=== PATIENT | male | born 1965 | race Caucasian/White ===

== ENCOUNTER 2021-01-11 12:26 | Emergency (ER) | payer OTHER, MEDICAID, SELFPAY ==
[2021-01-11] VITALS (11 sets, daily range): BP systolic 134–174; BP diastolic 79–102; PULSE 78–106; RESP 16–23; TEMP 36.6; O2SAT 94–97; BMI 28.7
--- NOTE | 2021-01-11 12:57 | DI.RAD.S_ITS ---
PROCEDURE: XR ACUTE ABDOMEN SERIES INDICATIONS: abd pain/constipation TECHNIQUE: One view chest and two views of the abdomen were acquired. COMPARISON: None. FINDINGS: Surgical changes and devices: None. Chest: Lungs are clear. Heart size is normal. No pleural effusions. No pneumoperitoneum. Abdomen: Bowel gas pattern is normal. No suspicious calcifications. Visualized solid organ contours appear normal. Increased stool is seen in right colon consistent with constipation. Diffusely distended loops of small and large bowel are noted. Contrast is present in the left lower abdomen likely related to oral contrast administered elsewhere or radiopaque material such as Pepto-Bismol. Bones: No suspicious bony lesions. IMPRESSION: Constipation. No acute abnormality. Dictated by: Dillon Matias M.D. on 01/11/2021 at 13:35 Approved by: Dillon Matias M.D. on 01/11/2021 at 13:37
[2021-01-11 13:59] LABS: Add Manual Diff / Slide Review NO; Basophils Absolute Auto 0 /uL (0-100); Basophils Percent Auto 0.2 % (0-2); Eosinophils Absolute Auto 0 /uL (0-450); Eosinophils Percent Auto 0.1 % (2-4); Hematocrit 47.5 % (41-53); Hemoglobin 16.6 g/dL (13.5-17.5); Lymphocytes Absolute Auto 900 /uL (1100-4500); Lymphocytes Percent Auto 7.4 % (25-40); Mean Corpuscular Hemoglobin 29.5 PG (26-34); Mean Corpuscular Volume 84.4 fL (80-100); Monocytes Absolute Auto 1100 /uL (0-900); Monocytes Percent Auto 8.8 % (3-14); Neutrophils Absolute Auto 10100 /uL (1500-7000); Neutrophils Percent Auto 83.5 % (50-75); Platelet Count 224 X10^3/uL (150-400); Red Blood Cell Count 5.63 X10^6/uL (4.5-5.9); Red Cell Distribution Width 12.9 % (11.6-14.8); White Blood Cell Count 12.1 X10^3/uL (4.5-11.0)
[2021-01-11 14:09] LABS: Prothrombin Time 11.8 SECONDS (10.1-12.7)
[2021-01-11 14:11] LABS: PTT Partial Thromboplastin Tim 31 SECONDS (26.4-36.2)
[2021-01-11 14:13] LABS: Alanine Aminotransferase 22 IU/L (<50); Albumin 4.8 g/dL (3.5-5.0); Albumin Globulin Ratio 1.6 (1.0-2.8); Alkaline Phosphatase 44 U/L (38-126); Aspartate Aminotransferase 21 IU/L (17-59); Bilirubin Total 1.1 mg/dL (0.2-1.3); Blood Urea Nitrogen 18 mg/dL (9-20); Calcium 9.9 mg/dL (8.4-10.2); Carbon Dioxide 26 mmol/L (22-32); Chloride 97 mmol/L (98-107); Estimated Glomerular Filt Rate 53.1 mL/min (>60); Glucose 124 mg/dL (70-100); HEMOLYSIS < 15 (0-50); Lipase 24 U/L (23-300); Potassium 4.1 mmol/L (3.4-5.1); Sodium 133 mmol/L (137-145); Total Protein 7.8 g/dL (6.3-8.2)
[2021-01-11 14:17] LABS: Amorphous Sediment Urine 1+; Bacteria Urine None Seen; Culture Indicated Urine Cult Not Indicated; RBC Urine 1-5/HPF (0-5/HPF); WBC Urine 0-1/HPF (0-5/HPF)
--- NOTE | 2021-01-11 14:21 | DI.CT.S_ITS ---
PROCEDURE: CT CHEST ABD PEL W CON INDICATIONS: RLQ, RUQ abdominal pain TECHNIQUE: After the administration of oral and intravenous contrast, axial sections acquired from the supraclavicular neck to the pubic symphysis. Coronal and sagittal reformats were performed. For radiation dose reduction, the following was used: automated exposure control, adjustment of mA and/or kV according to patient size. COMPARISON: None. FINDINGS: Image quality: Excellent. CHEST: Lungs and pleura: No acute air space opacities. No pleural effusions or pneumothorax. Central and peripheral airways are patent and normal in caliber. Mild right basilar atelectasis Mediastinum: Heart size is normal. No pericardial effusion. No mediastinal adenopathy by size criteria. The aorta has atherosclerosis with no aneurysmal dilatation. The coronary arteries have atherosclerotic calcifications. Esophagus is normal in caliber. No hiatal hernia. Chest wall: No axillary or supraclavicular adenopathy by size criteria. Thyroid gland is normal . ABDOMEN: Solid organs: Liver: The liver has no mass or intrahepatic biliary ductal dilatation. The portal vein and hepatic veins are patent. Biliary: The gallbladder contains a 8 mm stone. No wall thickening or pericholecystic fluid to suggest cholecystitis. Pancreas: The pancreas has no mass or ductal dilatation. There is no surrounding inflammation. Spleen: Normal size. There are no masses. Adrenals: No hypertrophy or nodules. Kidneys: The left kidney is normal with no obstructing stones or hydronephrosis. The right kidney has mild perinephric inflammation and dilation of the right ureter along its entire length to the bladder. No solid or cystic masses of the kidneys. Bowel: Small hiatal hernia. The stomach is normal. The small bowel has a normal caliber and appearance. The terminal ileum is normal. The large bowel has a normal caliber and appearance. The appendix is normal. No free fluid or air. Nodes and vessels: No retroperitoneal or mesenteric adenopathy by size criteria. The aorta has atherosclerosis with no aneurysmal dilatation. The IVC has a normal caliber. Abdominal wall: No abdominal wall mass or hernia. PELVIS: Genitourinary: Possible thickening of the right bladder wall at the UVJ. There is a 4 mm calculus lying dependently in the bladder, likely a recently passed stone. Abdominal wall: No inguinal hernias or adenopathy. BONES: Degenerative disc disease at L5-S1. Multilevel degenerative changes. No vertebral body compression fractures. The left hip has severe degenerative changes with subchondral cystic changes of the acetabulum. IMPRESSION: 1. Right perinephric inflammation and prominence of the right ureter with a stone lying dependently in the bladder. Findings are most consistent with a recently passed stone. 2. Thickening of the bladder at the UVJ likely edema from recently passed stone. Recommend follow-up to ensure resolution or cystoscopy. Dictated by: Dillon Matias M.D. on 01/11/2021 at 15:24 Approved by: Dillon Matias M.D. on 01/11/2021 at 15:36
--- NOTE | 2021-01-11 14:36 | ED_ITS ---
HPI - Abdominal Pain <Robby Ferreira PA-C - Last Filed: 01/11/21 17:29> General Chief Complaint: Abdominal Pain Stated Complaint: right sided pain Time Seen by Provider: 01/11/21 13:47 History of Present Illness HPI narrative: Patient is a 55-year-old male presenting to the emergency department today for evaluation right lower quadrant abdominal pain. Patient states that he began to experience right lower quadrant abdominal pain yesterday afternoon, and he notes that his last bowel movement occurred on the morning prior. Patient states that the pain has began radiating into his right upper quadrant. He notes that he does have a history of gastroesophageal reflux disease but he notes that Pepto-Bismol has not been helping with his symptoms. Additionally, he notes 3 episodes of nonbloody nonbilious vomiting since his pain began on Wednesday. Patient denies fever, chills, chest pain, shortness of breath, cough, diarrhea, hematuria, dysuria, numbness or tingling in the bilateral lower extremities. No other concerns voiced at this time. Related Data Previous Rx's Medication Instructions Recorded docusate sodium 100 mg capsule 100 mg PO BID #10 cap 01/11/21 ondansetron HCl 4 mg tablet 4 mg PO Q8H PRN #20 tab 01/11/21 (Zofran) oxycodone 5 mg capsule 5 mg PO BID PRN #6 cap 01/11/21 Review of Systems <Robby Ferreira PA-C - Last Filed: 01/11/21 17:29> Constitutional Constitutional: Denies chills, Denies fatigue, Denies fever(s), Denies frequent falls, Denies lethargy and Denies weakness Eyes Eyes: Denies loss of vision ENT Ears, Nose, Mouth, and Throat: Denies dizziness and Denies neck pain Cardiovascular Cardiovascular: Denies chest pain, Denies irregular heart rhythm, Denies lightheadedness, Denies palpitations, Denies dyspnea, Denies dyspnea on exertion and Denies orthopnea Respiratory Respiratory: Denies cough, Denies dyspnea, Denies dyspnea on exertion and Denies wheezing Gastrointestinal Gastrointestinal: Reports abdominal pain (Right lower quadrant, right upper quadrant pain), Denies change in bowel habits, Reports constipation, Denies diarrhea, Denies nausea and Reports vomiting Genitourinary Genitourinary: Denies hematuria, Reports flank pain (Slight right flank pain), Denies urinary incontinence and Denies urinary urgency Musculoskeletal Musculoskeletal: Denies back pain, Denies muscle weakness, Denies neck pain, Denies numbness and Denies tingling Neurologic Neurologic: Denies behavioral changes, Denies confusion, Denies dizziness, Denies frequent falls, Denies loss of vision, Denies numbness, Denies tingling and Denies weakness Psychiatric Psychiatric: Denies behavioral changes and Denies confusion Endocrine Endocrine: Denies fatigue and Denies palpitations Allergic/Immunologic Allergic/Immunologic: Denies wheezing Exam <Robby Ferreira PA-C - Last Filed: 01/11/21 17:29> Narrative Exam Narrative: GENERAL: 55 year old patient appears stated age. Well-developed patient, in mild distress. HEAD: Atraumatic. Normocephalic. EYES: Pupils equal round and reactive. Extraocular motions intact. No scleral icterus. No injection or drainage. ENT: Nose without bleeding, purulent drainage. Throat without erythema, tonsillar hypertrophy or exudate. Airway patent. NECK: Trachea midline. Non tender CARDIOVASCULAR: Regular rate and rhythm without murmurs, gallops, or rubs. RESPIRATORY: Clear to auscultation. Breath sounds equal bilaterally. No wheezes, rales, or rhonchi. GASTROINTESTINAL: Abdomen soft, nondistended. Tenderness to palpation appreciated in the right upper quadrant. Positive Leon sign. Negative McBurney's point. No rebound tenderness appreciated. Negative psoas sign. EXTREMITIES: No edema or joint tenderness. BACK: Nontender without deformity or crepitance. No flank tenderness. No CVA tenderness. NEURO: AOx3. SKIN: No rash or erythema of visible areas Initial Vital Signs Initial Vital Signs: Vital Signs Temperature 97.9 F 01/11/21 12:51 Pulse Rate 106 H 01/11/21 12:51 Respiratory Rate 16 01/11/21 12:51 Blood Pressure 142/102 H 01/11/21 12:51 Pulse Oximetry 97 01/11/21 12:51 <Augustus Coppola DO - Last Filed: 01/11/21 17:39> Initial Vital Signs Initial Vital Signs: Vital Signs Temperature 97.9 F 01/11/21 12:51 Pulse Rate 106 H 01/11/21 12:51 Respiratory Rate 16 01/11/21 12:51 Blood Pressure 142/102 H 01/11/21 12:51 Pulse Oximetry 97 01/11/21 12:51 Course <Robby Ferreira PA-C - Last Filed: 01/11/21 17:29> Course Course Narrative: CBC, CMP, chest x-ray, CT abdomen chest and pelvis, lipase, PT/INR, PTT, UA, EKG ordered. Orders Ordered: ED Orders 01/11/21 12:57 XR acute abdomen series Stat 01/11/21 13:51 Complete Blood Count AUTO DIFF Stat Comprehensive Metabolic Panel Stat Lipase Stat Partial Thromboplastin Time Stat Prothrombin Time INR Stat 01/11/21 14:05 Urine Microscopic Stat 01/11/21 14:21 CT chest abd pel w con Stat Vital Signs Vital signs: Vital Signs - 8 hr 01/11/21 12:51 01/11/21 13:42 01/11/21 13:43 Temperature 97.9 F Pulse Rate 106 H 78 78 Respiratory Rate 16 Blood Pressure 142/102 H 174/91 H Pulse Oximetry 97 97 96 01/11/21 13:53 01/11/21 14:23 01/11/21 14:25 Temperature Pulse Rate 90 98 H 99 H Respiratory Rate 20 20 Blood Pressure 173/99 H 150/91 H Pulse Oximetry 95 95 94 01/11/21 14:30 01/11/21 14:52 01/11/21 15:00 Temperature Pulse Rate 96 H 91 H 94 H Respiratory Rate 23 20 20 Blood Pressure 151/91 H 159/82 H 142/79 H Pulse Oximetry 94 97 94 01/11/21 16:21 01/11/21 16:22 Temperature Pulse Rate 89 91 H Respiratory Rate 20 Blood Pressure 134/81 Pulse Oximetry 96 96 <Augustus Coppola DO - Last Filed: 01/11/21 17:39> Orders Ordered: ED Orders 01/11/21 12:57 XR acute abdomen series Stat 01/11/21 13:51 Complete Blood Count AUTO DIFF Stat Comprehensive Metabolic Panel Stat Lipase Stat Partial Thromboplastin Time Stat Prothrombin Time INR Stat 01/11/21 14:05 Urine Microscopic Stat 01/11/21 14:21 CT chest abd pel w con Stat Vital Signs Vital signs: Vital Signs - 8 hr 01/11/21 12:51 01/11/21 13:42 01/11/21 13:43 Temperature 97.9 F Pulse Rate 106 H 78 78 Respiratory Rate 16 Blood Pressure 142/102 H 174/91 H Pulse Oximetry 97 97 96 01/11/21 13:53 01/11/21 14:23 01/11/21 14:25 Temperature Pulse Rate 90 98 H 99 H Respiratory Rate 20 20 Blood Pressure 173/99 H 150/91 H Pulse Oximetry 95 95 94 01/11/21 14:30 01/11/21 14:52 01/11/21 15:00 Temperature Pulse Rate 96 H 91 H 94 H Respiratory Rate 23 20 20 Blood Pressure 151/91 H 159/82 H 142/79 H Pulse Oximetry 94 97 94 01/11/21 16:21 01/11/21 16:22 Temperature Pulse Rate 89 91 H Respiratory Rate 20 Blood Pressure 134/81 Pulse Oximetry 96 96 MDM - Abdominal Pain <Robby Ferreira PA-C - Last Filed: 01/11/21 17:29> Lab Data Result diagrams: 01/11/21 13:51 01/11/21 13:51 Labs: Lab Results 01/11/21 01/11/21 01/11/21 Range/Units 13:51 13:51 13:51 WBC 12.1 H (4.5-11.0) X10^3/uL RBC 5.63 (4.5-5.9) X10^6/uL Hgb 16.6 (13.5-17.5) g/dL Hct 47.5 (41-53) % MCV 84.4 (80-100) fL MCH 29.5 (26-34) PG MCHC 35.0 (30-36) % RDW 12.9 (11.6-14.8) % Plt Count 224 (150-400) X10^3/uL Neut % (Auto) 83.5 H (50-75) % Lymph % (Auto) 7.4 L (25-40) % [place] % (Auto) 8.8 (3-14) % Eos % (Auto) 0.1 L (2-4) % Baso % (Auto) 0.2 (0-2) % Neut # (Auto) 15526 H (6400-8075) /uL Lymph # (Auto) 900 L (4776-4160) /uL [place] # (Auto) 1100 H (0-900) /uL Eos # (Auto) 0 (0-450) /uL Baso # (Auto) 0 (0-100) /uL PT 11.8 (10.1-12.7) SECONDS INR 1.0 (0.9-1.3) APTT 31 (26.4-36.2) SECONDS Sodium 133 L (137-145) mmol/L Potassium 4.1 (3.4-5.1) mmol/L Chloride 97 L (98-107) mmol/L Carbon Dioxide 26 (22-32) mmol/L BUN 18 (9-20) mg/dL Creatinine 1.38 H (0.66-1.25) mg/dL Estimated GFR 53.1 L (>60) mL/min BUN/Creatinine Ratio 13.0 (6-22) Glucose 124 H (70-100) mg/dL Calcium 9.9 (8.4-10.2) mg/dL Total Bilirubin 1.1 (0.2-1.3) mg/dL AST 21 (17-59) IU/L ALT 22 (<50) IU/L Alkaline Phosphatase 44 (38-126) U/L Total Protein 7.8 (6.3-8.2) g/dL Albumin 4.8 (3.5-5.0) g/dL Globulin 3.0 (1.7-4.1) g/dL Albumin/Globulin Ratio 1.6 (1.0-2.8) Lipase 24 (23-300) U/L Urine RBC (0-5/HPF) Urine WBC (0-5/HPF) Amorphous Sediment Urine Bacteria (None) Ur Culture Indicated? 01/11/21 Range/Units 14:05 WBC (4.5-11.0) X10^3/uL RBC (4.5-5.9) X10^6/uL Hgb (13.5-17.5) g/dL Hct (41-53) % MCV (80-100) fL MCH (26-34) PG MCHC (30-36) % RDW (11.6-14.8) % Plt Count (150-400) X10^3/uL Neut % (Auto) (50-75) % Lymph % (Auto) (25-40) % [place] % (Auto) (3-14) % Eos % (Auto) (2-4) % Baso % (Auto) (0-2) % Neut # (Auto) (5306-4544) /uL Lymph # (Auto) (1979-3678) /uL [place] # (Auto) (0-900) /uL Eos # (Auto) (0-450) /uL Baso # (Auto) (0-100) /uL PT (10.1-12.7) SECONDS INR (0.9-1.3) APTT (26.4-36.2) SECONDS Sodium (137-145) mmol/L Potassium (3.4-5.1) mmol/L Chloride (98-107) mmol/L Carbon Dioxide (22-32) mmol/L BUN (9-20) mg/dL Creatinine (0.66-1.25) mg/dL Estimated GFR (>60) mL/min BUN/Creatinine Ratio (6-22) Glucose (70-100) mg/dL Calcium (8.4-10.2) mg/dL Total Bilirubin (0.2-1.3) mg/dL AST (17-59) IU/L ALT (<50) IU/L Alkaline Phosphatase (38-126) U/L Total Protein (6.3-8.2) g/dL Albumin (3.5-5.0) g/dL Globulin (1.7-4.1) g/dL Albumin/Globulin Ratio (1.0-2.8) Lipase (23-300) U/L Urine RBC 1-5/hpf (0-5/HPF) Urine WBC 0-1/hpf (0-5/HPF) Amorphous Sediment 1+ Urine Bacteria None seen (None) Ur Culture Indicated? Cult not indicated Point of care testing: Urine Dip Bedside Urine Glucose Negative Bedside Urine Bilirubin - Negative Bedside Urine Ketone - Negative Urine Specific [place] 1.010 Bedside Urine Occult Blood +++ Bedside Urine pH 6.0 Bedside Urine Protein + 30 Bedside Urine Urobilinogen - Negative Bedside Urine Nitrite - Negative Bedside Urine Leukocytes - Negative Esterase Imaging Data Chest/Abdomen x-ray: Radiologist's Impression: PROCEDURE:? XR ACUTE ABDOMEN SERIES ? INDICATIONS:? abd pain/constipation ? TECHNIQUE:? One view chest and two views of the abdomen were acquired.? ? COMPARISON:? None. ? FINDINGS:? ? Surgical changes and devices:? None.? ? Chest:? Lungs are clear.? Heart size is normal.? No pleural effusions.? No pneumoperitoneum.? ? Abdomen:? Bowel gas pattern is normal.? No suspicious calcifications.? Visualized solid organ contours appear normal.? Increased stool is seen in right colon consistent with constipation.? Diffusely distended loops of small and large bowel are noted.? Contrast is present in the left lower abdomen likely related to oral contrast administered elsewhere or radiopaque material such as Pepto-Bismol. ? Bones:? No suspicious bony lesions.? ? IMPRESSION:? Constipation.? No acute abnormality.? ? ? Dictated by: Dillon Matias M.D. on 01/11/2021 at 13:35 ? ? Approved by: Dillon Matias M.D. on 01/11/2021 at 13:37 ? CT scan - chest/abdomen/pelvis: Radiologist's Impression: PROCEDURE:? CT CHEST ABD PEL W CON ? INDICATIONS:? RLQ, RUQ abdominal pain ? TECHNIQUE:? After the administration of oral and intravenous contrast, axial sections acquired from the supraclavicular neck to the pubic symphysis.? Coronal and sagittal reformats were performed.? For radiation dose reduction, the following was used:? automated exposure control, adjustment of mA and/or kV according to patient size.? ? COMPARISON:? None. ? FINDINGS: ? ? Image quality:? Excellent.? ? CHEST: Lungs and pleura:? No acute air space opacities.? No pleural effusions or pneumothorax.? Central and peripheral airways are patent and normal in caliber.? Mild right basilar atelectasis ? Mediastinum:? Heart size is normal.? No pericardial effusion.? No mediastinal adenopathy by size criteria.? The aorta has atherosclerosis with no aneurysmal dilatation.? The coronary arteries have atherosclerotic calcifications.? Esophagus is normal in caliber.? No hiatal hernia. ? Chest wall:? No axillary or supraclavicular adenopathy by size criteria.? Thyroid gland is normal .? ? ABDOMEN: Solid organs:? Liver: The liver has no mass or intrahepatic biliary ductal dilatation. The portal vein and hepatic veins are patent. Biliary:? The gallbladder contains a 8 mm stone.? No wall thickening or pericholecystic fluid to suggest cholecystitis.? Pancreas: The pancreas has no mass or ductal dilatation. There is no surrounding inflammation. Spleen: Normal size. There are no masses. Adrenals: No hypertrophy or nodules. Kidneys:? The left kidney is normal with no obstructing stones or hydr onephrosis.? The right kidney has mild perinephric inflammation and dilation of the right ureter along its entire length to the bladder.? No solid or cystic masses of the kidneys.? ? Bowel:? Small hiatal hernia.? The stomach is normal.? The small bowel has a normal caliber and appearance. The terminal ileum is normal. The large bowel has a normal caliber and appearance.? The appendix is normal. No free fluid or air.? ? Nodes and vessels:? No retroperitoneal or mesenteric adenopathy by size crite maria esther.? The aorta has atherosclerosis with no aneurysmal dilatation.? The IVC has a normal caliber. ? Abdominal wall:? No abdominal wall mass or hernia. ? PELVIS:? Genitourinary:? Possible thickening of the right bladder wall at the UVJ.? There is a 4 mm calculus lying dependently in the bladder, likely a recently passed stone. ? Abdominal wall:? No inguinal hernias or adenopathy.? ? BONES:? Degenerative disc disease at L5-S1.? Multilevel degenerative changes.? No vertebral body compression fractures.? The left hip has severe degenerative changes with subchondral cystic changes of the acetabulum. ? IMPRESSION: 1. Right perinephric inflammation and prominence of the right ureter with a stone lying dependently in the bladder.? Findings are most consistent with a recently passed stone.? 2. Thickening of the bladder at the UVJ likely edema from recently passed stone.? Recommend follow-up to ensure resolution or cystoscopy. ? ? Dictated by: Dillon Matias M.D. on 01/11/2021 at 15:24 ? ? Approved by: Dillon Matias M.D. on 01/11/2021 at 15:36 ? MDM Narrative Medical decision making narrative: Patient is a 55-year-old male presenting to the emergency department today for evaluation right lower quadrant abdominal pain. To consider appendicitis versus is cholelithiasis versus cholecystitis versus ischemic colitis versus constipation versus nephrolithiasis versus ureterolithiasis. Overall physical examination, history, lab work, imaging are reassuring. Discussed results of lab work and imaging to the patient and recommended that he follow-up with a general surgeon. At this time he feels comfortable being discharged home. Strict return precautions discussed with patient prior to discharge. <Augustus Coppola, DO - Last Filed: 01/11/21 17:39> Lab Data Labs: Lab Results 01/11/21 01/11/21 01/11/21 Range/Units 13:51 13:51 13:51 WBC 12.1 H (4.5-11.0) X10^3/uL RBC 5.63 (4.5-5.9) X10^6/uL Hgb 16.6 (13.5-17.5) g/dL Hct 47.5 (41-53) % MCV 84.4 (80-100) fL MCH 29.5 (26-34) PG MCHC 35.0 (30-36) % RDW 12.9 (11.6-14.8) % Plt Count 224 (150-400) X10^3/uL Neut % (Auto) 83.5 H (50-75) % Lymph % (Auto) 7.4 L (25-40) % [place] % (Auto) 8.8 (3-14) % Eos % (Auto) 0.1 L (2-4) % Baso % (Auto) 0.2 (0-2) % Neut # (Auto) 65566 H (0065-7296) /uL Lymph # (Auto) 900 L (4411-1209) /uL [place] # (Auto) 1100 H (0-900) /uL Eos # (Auto) 0 (0-450) /uL Baso # (Auto) 0 (0-100) /uL PT 11.8 (10.1-12.7) SECONDS INR 1.0 (0.9-1.3) APTT 31 (26.4-36.2) SECONDS Sodium 133 L (137-145) mmol/L Potassium 4.1 (3.4-5.1) mmol/L Chloride 97 L (98-107) mmol/L Carbon Dioxide 26 (22-32) mmol/L BUN 18 (9-20) mg/dL Creatinine 1.38 H (0.66-1.25) mg/dL Estimated GFR 53.1 L (>60) mL/min BUN/Creatinine Ratio 13.0 (6-22) Glucose 124 H (70-100) mg/dL Calcium 9.9 (8.4-10.2) mg/dL Total Bilirubin 1.1 (0.2-1.3) mg/dL AST 21 (17-59) IU/L ALT 22 (<50) IU/L Alkaline Phosphatase 44 (38-126) U/L Total Protein 7.8 (6.3-8.2) g/dL Albumin 4.8 (3.5-5.0) g/dL Globulin 3.0 (1.7-4.1) g/dL Albumin/Globulin Ratio 1.6 (1.0-2.8) Lipase 24 (23-300) U/L Urine RBC (0-5/HPF) Urine WBC (0-5/HPF) Amorphous Sediment Urine Bacteria (None) Ur Culture Indicated? 01/11/21 Range/Units 14:05 WBC (4.5-11.0) X10^3/uL RBC (4.5-5.9) X10^6/uL Hgb (13.5-17.5) g/dL Hct (41-53) % MCV (80-100) fL MCH (26-34) PG MCHC (30-36) % RDW (11.6-14.8) % Plt Count (150-400) X10^3/uL Neut % (Auto) (50-75) % Lymph % (Auto) (25-40) % [place] % (Auto) (3-14) % Eos % (Auto) (2-4) % Baso % (Auto) (0-2) % Neut # (Auto) (6665-7440) /uL Lymph # (Auto) (8251-3907) /uL [place] # (Auto) (0-900) /uL Eos # (Auto) (0-450) /uL Baso # (Auto) (0-100) /uL PT (10.1-12.7) SECONDS INR (0.9-1.3) APTT (26.4-36.2) SECONDS Sodium (137-145) mmol/L Potassium (3.4-5.1) mmol/L Chloride (98-107) mmol/L Carbon Dioxide (22-32) mmol/L BUN (9-20) mg/dL Creatinine (0.66-1.25) mg/dL Estimated GFR (>60) mL/min BUN/Creatinine Ratio (6-22) Glucose (70-100) mg/dL Calcium (8.4-10.2) mg/dL Total Bilirubin (0.2-1.3) mg/dL AST (17-59) IU/L ALT (<50) IU/L Alkaline Phosphatase (38-126) U/L Total Protein (6.3-8.2) g/dL Albumin (3.5-5.0) g/dL Globulin (1.7-4.1) g/dL Albumin/Globulin Ratio (1.0-2.8) Lipase (23-300) U/L Urine RBC 1-5/hpf (0-5/HPF) Urine WBC 0-1/hpf (0-5/HPF) Amorphous Sediment 1+ Urine Bacteria None seen (None) Ur Culture Indicated? Cult not indicated Point of care testing: Urine Dip Bedside Urine Glucose Negative Bedside Urine Bilirubin - Negative Bedside Urine Ketone - Negative Urine Specific [place] 1.010 Bedside Urine Occult Blood +++ Bedside Urine pH 6.0 Bedside Urine Protein + 30 Bedside Urine Urobilinogen - Negative Bedside Urine Nitrite - Negative Bedside Urine Leukocytes - Negative Esterase Discharge Plan Departure Patient Disposition: Home Clinical Impression: Ureterolithiasis, Gallstone, Constipation Instructions: DI for Kidney Stones, DI for Gallstones Activity Restrictions/Additional Instructions: *You have been diagnosed with ureterolithiasis, gallstones *What to do: *Please continue to take your regular medications as directed. [X] New medication prescriptions sent to your pharmacy: [facility] [X] New medication written as a paper prescription - Oxycodone [ ] No new medications given *Please follow up with your primary care provider in 2-3 days, call for an appointment. Let them know you were seen in the Emergency Department and that we ask that you be seen in follow up. We will electronically transmit a record of today's note if your PCP is in our system. *Please follow-up with Dr. Padilla (General Surgery) the earliest available convenience. Office can be reached at . *If you do not have a primary care provider please contact the [facility] Resource line at [phone]. They will ask some questions about your medical history and help get you set up with a doctor in the community. *Return to Emergency Department if you should have any new, worsening or concerning symptoms, such as [fever greater than 101 F, shaking chills, worsening pain, persistent vomiting or other bothersome symptoms] Prescriptions: New docusate sodium 100 mg capsule 100 mg PO BID Qty: 10 0RF ondansetron HCl [Zofran] 4 mg tablet 4 mg PO Q8H PRN (Reason: nausea and vomiting) Qty: 20 0RF oxycodone 5 mg capsule 5 mg PO BID PRN (Reason: pain) Qty: 6 0RF Referrals: Tk Rosario MD [Primary Care Provider] - Tiago Padilla MD [Physician] - As soon as possible <Augustus Coppola DO - Last Filed: 01/11/21 17:39> Cosign ED Attending Cosignature Attestation: Dr Coppola Co-Sign Statement: I was available for consultation during this patient's emergency department visit. This chart is signed by myself for administrative purposes only. I did not have direct contact with this patient during this visit. They were seen independently by the APC.
== END 2021-01-11 16:54 | disposition home or self-care (01) ==
PROVIDERS: Emergency Medicine; Emergency Provider Physician Assistant; PCP Family Medicine
DX: N20.1 Calculus of ureter (principal); K80.20 Calculus of gallbladder without cholecystitis without obstruction; K59.00 Constipation, unspecified
CPT/HCPCS: 36415; 71260; 74022; 74177; 80053; 81003; 81015; 83690; 85025; 85610; 85730; 99283; 99284; Q9967